=== PATIENT | male | born 1990 | race Caucasian/White ===

== ENCOUNTER 2016-10-17 12:47 | Inpatient (IN) | payer MEDICAID, OTHER ==
[~2016-10-17] VITALS: Ht 180.3 cm; Wt 109.3 kg
[~2016-10-17 12:47] MED LIST: ASPIRIN81 M4 PO; COLACE100 MG PO; LEVAQUIN500 MG PO; LOPRESSOR25 MG PO; NORCO 325 MG-51 TAB PO; NORCO 5/325 MG1 TAB PO; PANCREASE PO; PRILOSEC40 MG PO; ZOCOR20 MG PO
[2016-10-17 13:23] VITALS: BP 135/92
--- NOTE | 2016-10-17 15:46 | NUR ---
Patient ambulated to bed 3. RN evaluating patient at bedside.
--- NOTE | 2016-10-17 15:47 | NUR ---
Dr. Napier evaluating patient at bedside.
[2016-10-17] MEDS ORDERED: NACL 0.9% 1,000 ML IV SCH (15:53)
[2016-10-17] MEDS ORDERED: ONDANSETRON 4 MG/2 ML VIAL IVP ONE ×2 (15:55)
[2016-10-17] MEDS ORDERED: HYDROmorphone 1 MG/ML AMP IVP ONE ×2 (15:55→17:05)
[2016-10-17] MEDS ORDERED: NACL 0.9% 1,000 ML IV ONE (15:55)
[2016-10-17] MEDS ORDERED: FAMOTIDINE 20 MG/2 ML VIAL IVP ONE (15:55)
--- NOTE | 2016-10-17 16:00 | NUR ---
PATIENT PRESENTS TO ED WITH EPIGASTRIC PAIN RADIATING BACK WITH N/V . PT STATES I WAS DRINKING HEAVY YESTERDAY SKIN IS PINK/WARM/DRY; AAOX4 WITH EVEN AND STEADY GAIT; LUNGS CLEAR BL; HR EVEN AND REGULAR; PT DENIES ANY FEVER, CP, SOB, OR COUGH AT THIS TIME; PATIENT STATES PAIN OF 10/10 AT THIS TIME; VSS; PATIENT POSITIONED FOR COMFORT; HOB ELEVATED; BEDRAILS UP X2; BED DOWN. ER MD MADE AWARE OF PT STATUS.
[2016-10-17] MEDS ORDERED: ONDANSETRON 4 MG/2 ML VIAL IVP PRN (17:40)
[2016-10-17] MEDS ORDERED: ACETAMINOPHEN 325 MG SUPP RC PRN (17:40)
[2016-10-17] MEDS ORDERED: DOCUSATE SODIUM 100 MG GELCAP PO PRN (17:40)
[2016-10-17] MEDS ORDERED: LORazepam 1 MG TAB PO PRN (17:45)
[2016-10-17] MEDS: VITAMIN B COMPLEX W/C 1 TAB PO SCH (17:45)
[2016-10-17] MEDS: FOLIC ACID 1 MG TAB PO SCH (17:45)
--- NOTE | 2016-10-17 17:54 | NUR ---
CALLED TO GIVE REPORT TO [facility]; KELL FRANKLIN STATES WILL CALL BACK.
--- NOTE | 2016-10-17 17:56 | NUR ---
Patient appears to be resting comfortably in bed. Vital Signs within normal limits. Respirations even and unlabored. WILL CONTINUE TO MONITOR.
--- NOTE | 2016-10-17 18:27 | NUR ---
REPORT GIVEN TO KELL ALFRED.
--- NOTE | 2016-10-17 18:33 | NUR ---
Patient will be admitted to care of DR. LEIVA. Admited to TELEMETRY OBSERVATION. Will go to room 112A. Belongings list completed. Report to KELL ALFRED.
--- NOTE | 2016-10-17 19:30 | NUR ---
RECEIVED REPORT FROM DAY RN AT BEDSIDE, PATIENT LYING IN BED C/O SEVERE ABDOMINAL PAIN , PATIENT APPEARS RESTLESS AND ANXIOUS, EXPLAINED TO PATIENT I WILL CHECK MDS ORDERS AND NEED TO ASSESS HIM AND HIS VITAL SIGNS BEFORE. PATIENT SKIN IS INTACT, IV TO RIGHT AC PATENT AND INTACT, ORIENTED PATIENT TO ROOM AND CALL LIGHT, DISCUSSED PLAN OF CARE WITH PATIENT, PATIENT VERBALIZED UNDERSTANDING, CALL LIGHT WITHIN REACH. WILL CONTINUE TO MONITOR. VITAL SIGNS STABLE
[2016-10-17] MEDS: LORazepam 2 MG/ML VIAL IVP SCH (19:51)
[2016-10-17] MEDS: MORPHINE SULFATE 2 MG/ML SYR IVP PRN (19:51)
[2016-10-17] MEDS: NACL 0.9% 1,000 ML IV SCH (22:05)
[2016-10-17] MEDS: KETOROLAC 30 MG/ML VIAL IVP PRN (22:05)
[2016-10-18] VITALS: BP 146/75
--- NOTE | 2016-10-18 00:10 | NUR ---
PATIENT RESTING IN BED, VITAL SIGNS STABLE, PATIENT C/O PAIN IN ABDOMEN, 01/18 WILL MEDICATE PER MD ORDER. WILL CONTINUE TO MONITOR.
[2016-10-18] MEDS: MORPHINE SULFATE 2 MG/ML SYR IVP PRN (00:37)
[2016-10-18] MEDS: NACL 0.9% 1,000 ML IV SCH ×5 (00:43→21:28)
--- NOTE | 2016-10-18 02:00 | NUR ---
PATIENT C/O ABDOMINAL PAIN 04/20 CONSTANTLY ASKING FOR DILAUDED. MORPHINE NOT DUE YET NOR IS THE TORADOL, CALLED DR LEIVA. D NOTIFIED OF PATIENT'S COMPLAINT OF PAIN, DR STATED PATIENT IS GETTING PAIN MEDS TOO OFTEN AND THAT THE PATIENT CAN NOT HAVE DILAUDED. STATED HE WILL INCREASE THE MORPHINE TO 2MG AND THE PATIENT WILL HAVE TO WAIT UNTIL IT IS DUE AGAIN. WILL F/U WITH ORDERS. EXPLAINED TO PATIENT WHAT THE DR SAID, PATIENT COMPLAINING HIS PAIN WONT GO AWAY, PATIENT IS ANXIOUS, BUT VERBALIZED UNDERSTANDING. WILL CONTINUE TO MONITOR.
[2016-10-18] MEDS ORDERED: MORPHINE SULFATE 2 MG/ML SYR IVP PRN (02:10)
--- NOTE | 2016-10-18 03:15 | NUR ---
PATIENT STILL COMPLAINING OF PAIN, OFFERED PATIENT ATIVAN PER MD ORDER TO HELP WITH THE ANXIETY, PATIENT KEEPS STATING HE WANTS SOMETHING FOR PAIN, REMINDED PATIENT PER THE DR HE HAS TO WAIT UNTIL THE NEXT DOSE IS DUE, PATIENT SAID HE WILL TAKE THE ATIVAN. PATIENT SLEEPING WHEN RETURNED WITH MEDICINE. WILL CONTINUE TO MONITOR.
--- NOTE | 2016-10-18 03:50 | NUR ---
PT C/O PAIN, ADMINISTERED PAIN ME PER MD ORDER, WILL CONTINUE TO MONITOR
--- NOTE | 2016-10-18 05:30 | NUR ---
PATIENT C/O HE STILL HAS PAIN, ADMINISTERED TORADOL PER MD ORDER. WILL CONTINUE TO MONITOR.
[2016-10-18] MEDS: KETOROLAC 30 MG/ML VIAL IVP PRN ×3 (05:32→17:14)
[2016-10-18] MEDS: LORazepam 2 MG/ML VIAL IVP SCH ×5 (06:00→23:15)
--- NOTE | 2016-10-18 06:54 | NUR ---
PATIENT SLEEPING, NO SIGN OF DISTRESS, CALL LIGHT WITHIN REACH. WILL CONTINUE TO MONITOR.
--- NOTE | 2016-10-18 07:30 | NUR ---
ENDORSED PATIENT TO DAY RN AT BEDSIDE, PATIENT IN STABLE CONDITION
--- NOTE | 2016-10-18 07:45 | NUR ---
PT LYING IN BED SLEEPING BUT WAS EASILY ROUSABLE. NO C/O PAIN VOICED AT THIS TIME. SHIFT ASSESSMENT DONE AND CHARTED. PLAN OF CARE, MEDS, TREATMENTS AND SAFETY DISCUSSED WITH PT AND PT VERBALIZED UNDERSTANDING. WILL CONTINUE TO MONITOR PT.
[2016-10-18 08:00] VITALS: BP 140/80
--- NOTE | 2016-10-18 08:00 | NUR ---
PT WAS SEEN BY DR. LEIVA AND JEANETTE. PT NOTED TO BE SLEEPING AT THIS TIME.
[2016-10-18] MEDS: FOLIC ACID 1 MG TAB PO SCH (09:16)
[2016-10-18] MEDS: VITAMIN B COMPLEX W/C 1 TAB PO SCH (09:18)
--- NOTE | 2016-10-18 09:20 | NUR ---
PT TOOK PO MEDS WELL. PT NPO EXCEPT MEDS AT THIS TIME.
[2016-10-18] MEDS: PANTOPRAZOLE 40 MG INJ VIAL IVP SCH (09:22)
--- NOTE | 2016-10-18 10:00 | NUR ---
PT WAS SEEN BY DR. LEIVA AND LEFT NEW ORDERS. PT ASKING FOR PAIN MED AT THIS TIME BUT SAME NOT DUE AT THIS TIME. PT NOTED TO BE SLEEPING WHEN CHECKED.
--- NOTE | 2016-10-18 10:30 | NUR ---
PT STATED THAT MD TOLD HIM THAT HE CAN HAVE A 1 TIME DOSE OF PAIN MADE IV. CLARIFIED SAME WITH DR. REID. MD STATED TO GIVE SCHEDULED TORADOL A LITTLE EARLIER. PT NOTED TO BE SLEEPING WHEN CHECKED.
--- NOTE | 2016-10-18 11:15 | NUR ---
TORADOL IVP GIVEN PER MD'S INSTRUCTIONS. PT NOTED TO BE SLEEPING AFTER.
--- NOTE | 2016-10-18 14:00 | NUR ---
PT NOTED TO BE SLEEPING AT THIS TIME.
[2016-10-18 16:00] VITALS: BP 137/80
[2016-10-18] MEDS ORDERED: HYDROcodone/APAP 5/325 MG 1 TAB TAB PO PRN (16:40)
--- NOTE | 2016-10-18 16:40 | NUR ---
PT ASKING FOR PAIN MED BUT NOT DUE AT THIS TIME. PT STATED THAT HIS ABDOMINAL PAIN WAS 4/10. PT STATED THAT MD TOLD HIM THAT HE COULD HAVE NORCO PRN. TALKED TO DR. JEANETTE HUSSEIN SAME AND MD GAVE NEW ORDERS. PT NOTED TO BE SLEEPING WHEN CHECKED.
--- NOTE | 2016-10-18 17:14 | NUR ---
PT MEDICATED WITH TORADOL 30 MG IVP PER PRN ORDER FOR C/O ABDOMINAL PAIN 01/18. WILL CONTINUE TO CHECK PT.
--- NOTE | 2016-10-18 18:00 | NUR ---
PT NOTED TO BE SLEEPING WHEN CHECKED.
--- NOTE | 2016-10-18 19:22 | NUR ---
REPORT GIVEN TO LENNY CASTORENA AT BEDSIDE. PT LYING IN BED COMFORTABLY USING HIS PHONE AND VOICED NO C/O PAIN/ DISCOMFORT AT THIS TIME.
--- NOTE | 2016-10-18 19:23 | NUR ---
RECEIVED REPORT FROM DAY RN FOR CONTINUITY OF CARE. PATIENT IS A&OX4, DISCUSSED PLAN OF CARE WITH PATIENT, VERBALIZED UNDERSTANDING. SHIFT ASSESSMENT DONE, VS TAKEN, STABLE. NO S/S OF RESPIRATORY DISTRESS NOTED ON ROOM AIR. PATIENT STATES TOLERABLE ABDOMINAL PAIN AT THIS TIME. SKIN INTACT. IV TO RT AC 20 GAUGE PATENT AND INFUSING FLUIDS WELL. URINAL AT BEDSIDE. SAFETY PRECAUTIONS ENFORCED. CALL LIGHT PLACED WITHIN REACH. WILL CONTINUE TO MONITOR.
[2016-10-18 20:00] VITALS: BP 137/88
--- NOTE | 2016-10-18 22:24 | NUR ---
PT C/O PAIN TO ABDOMEN, MEDICATED WITH NORCO. ALSO PROVIDED PT WITH DRINK PER CLEAR LIQUID DIET, TOLERATED WELL. WILL CONTINUE TO MONITOR.
--- NOTE | 2016-10-18 23:15 | NUR ---
VS TAKEN, STABLE. DUE MEDICATIONS ADMINISTERED, TOLERATED WELL.
[2016-10-19] VITALS: BP 145/86
--- NOTE | 2016-10-19 00:15 | NUR ---
PT TOOK A SHOWER AND PROVIDED PM CARE. NOW IN BED RESTING. WILL CONTINUE TO MONITOR.
[2016-10-19] MEDS: NACL 0.9% 1,000 ML IV SCH ×4 (01:17→19:50)
[2016-10-19] MEDS: KETOROLAC 30 MG/ML VIAL IVP PRN ×3 (01:23→14:23)
--- NOTE | 2016-10-19 01:23 | NUR ---
PT C/O ABDOMINAL PAIN, MEDICATED PER MD ORDER. CALL LIGHT PLACED WITHIN REACH.
--- NOTE | 2016-10-19 02:00 | NUR ---
PT IS SLEEPING. NO S/S OF DISTRESS OR DISCOMFORT NOTED. WILL CONTINUE TO MONITOR.
--- NOTE | 2016-10-19 04:02 | NUR ---
PT IS AWAKE ON THE PHONE, NO S/S OF DISTRESS OR DISCOMFORT NOTED. WILL CONTINUE TO MONITOR.
[2016-10-19] MEDS ORDERED: NACL 0.9% 1,000 ML IV SCH (05:00)
[2016-10-19] MEDS: LORazepam 2 MG/ML VIAL IVP SCH ×3 (05:59→18:02)
--- NOTE | 2016-10-19 06:00 | NUR ---
DUE MEDICATION ADMINISTERED, TOLERATED WELL. VS STABLE. CALL LIGHT WITHIN REACH.
--- NOTE | 2016-10-19 07:20 | NUR ---
ENDORSED PATIENT TO DAY RN FOR CONTINUITY OF CARE, PATIENT IS IN STABLE CONDITION.
--- NOTE | 2016-10-19 07:21 | NUR ---
RECEIVED REPORT FROM THE CASSANDRA DEVELOPER NURSE AT BEDSIDE. PT IS SLEEPING. NO SIGNS OF DISTRESS. WILL BE BACK TO ASSESS PT.
[2016-10-19 08:00] VITALS: BP 135/84
--- NOTE | 2016-10-19 08:22 | NUR ---
PATIENT HAS BEEN SCREENED AND CATEGORIZED MODERATE NUTRITION RISK. PATIENT WILL BE SEEN WITHIN 3-5 DAYS OF ADMISSION. 10/20/16-10/22/[address]
[2016-10-19] MEDS: VITAMIN B COMPLEX W/C 1 TAB PO SCH (08:25)
[2016-10-19] MEDS: FOLIC ACID 1 MG TAB PO SCH (08:25)
[2016-10-19] MEDS: PANTOPRAZOLE 40 MG INJ VIAL IVP SCH (08:26)
--- NOTE | 2016-10-19 08:32 | NUR ---
ADMINISTERED MORNING MEDS. PT TOLERATED WELL. WENT OVER THE PLAN TODAY. TRY TO EAT FOOD TO SEE IF PT CAN TOLERATE IT BETTER. SEE IF THE ABDOMINAL PAIN IS BETTER. HAVE PT AMBULATE UP AND DOWN [address]. IF HE IS GOOD, HE CAN GO HOME PER MD.
--- NOTE | 2016-10-19 10:45 | NUR ---
PT SNORING, SOUND ASLEEP. NO SIGNS OF DISTRESS. CALL LIGHT WITHIN REACH. WILL CONTINUE TO MONITOR PT.
--- NOTE | 2016-10-19 11:15 | NUR ---
NOTIFIED DR. COLIN ABOUT PT'S K LEVEL AT 3.2; MAG AT 1.7; AND AMYLASE AND LIPASE AT [phone]/[phone]. DR. COLIN ORDERED HIS FLUIDS TO BE INCREASED TO 200ML/HR FROM 80ML. ORDERED DILAUDID ONCE,STAT. WILL CONTINUE TO MONITOR PT.
--- NOTE | 2016-10-19 12:16 | NUR ---
PT'S DAUGHTER IS HERE. ADMINISTERED 1200 MEDS. CRUSHED AND IN APPLE SAUCE. PT TOLERATED WELL. ORDERED ZOSYN FOR LEUKOCYTOSIS. ADMINISTERED IVPB. PT TOLERATED WELL. PT IS FEEDING THE PT. WILL CONTINUE TO CHECK ON PT.
--- NOTE | 2016-10-19 12:58 | NUR ---
PT IS SLEEPING. KEEPS BENDING HIS IV ARM AND THE IV PUMP ALARM IS GOING OFF. PT HAS NOT ASKED FOR ANY PAIN MEDS, OF YET. JUST SLEEPING. WILL CONTINUE TO MONITOR PT.
[2016-10-19] MEDS ORDERED: HYDROmorphone 1 MG/ML AMP IVP SCH (14:28)
--- NOTE | 2016-10-19 15:09 | NUR ---
PT SLEEPING. NO SIGNS OF DISTRESS. CALL LIGHT WITHIN REACH. WILL CONTINUE TO MONITOR PT.
[2016-10-19 16:00] VITALS: BP 158/87
--- NOTE | 2016-10-19 17:00 | NUR ---
PT RESTING IN BED, ON THE PHONE. NO COMPLAINTS AT THIS TIME. WILL CONTINUE TO MONITOR PT.
--- NOTE | 2016-10-19 19:25 | NUR ---
ENDORSED PT TO THE CHARTER REPRESENTATIVE NURSE AT BEDSIDE FOR CONTINUITY OF CARE. PT IS IN STABLE CONDITION.
--- NOTE | 2016-10-19 19:26 | NUR ---
RECEIVED REPORT FROM SHANTI CASTORENA FOR CONTINUITY OF CARE. PATIENT IS A&OX4, DISCUSSED PLAN OF CARE WITH PATIENT, VERBALIZED UNDERSTANDING. SHIFT ASSESSMENT DONE, VS TAKEN, STABLE AT THIS TIME. NO S/S OF RESPIRATORY DISTRESS NOTED ON ROOM AIR. PATIENT DENIES PAIN AT THIS TIME. SKIN INTACT. IV TO RT AC 20 GAUGE PATENT AND INFUSING FLUIDS WELL. NPO ENFORCED TO PATIENT AND REMOVED ALL FOOD/DRINK FROM ROOM, PT VERBALIZED UNDERSTANDING. SAFETY PRECAUTIONS ENFORCED. CALL LIGHT PLACED WITHIN REACH. WILL CONTINUE TO MONITOR.
[2016-10-19 20:00] VITALS: BP 130/78
--- NOTE | 2016-10-19 21:32 | NUR ---
EMPTIED URINAL, 300 ML LIGHT RODRIGO URINE NOTED. ALL NEEDS MET AT THIS TIME. WILL CONTINUE TO MONITOR.
--- NOTE | 2016-10-19 22:41 | NUR ---
PT C/O SEVERE ABDOMINAL PAIN. SPOKE WITH DR. BAGLEY REGARDING PAIN MEDICATION, WILL FOLLOW OUT ORDERS GIVEN.
[2016-10-19] MEDS: HYDROmorphone 1 MG/ML AMP IVP PRN (23:48)
--- NOTE | 2016-10-19 23:48 | NUR ---
VS TAKEN. PATIENT STATES SEVERE ABDOMINAL PAIN /, ADMINISTERED MEDICATION PER MD ORDER. CALL LIGHT PLACED WITHIN REACH.
[2016-10-20] VITALS: BP 158/87
[2016-10-20] MEDS: NACL 0.9% 1,000 ML IV SCH ×2 (00:14→06:58)
--- NOTE | 2016-10-20 02:03 | NUR ---
PT AMBULATING IN HALLWAY, TOLERATING WELL.
[2016-10-20] MEDS: HYDROmorphone 1 MG/ML AMP IVP PRN (04:40)
--- NOTE | 2016-10-20 04:40 | NUR ---
PT C/O PAIN, MEDICATED PER MD ORDER. VS TAKEN, STABLE. CALL LIGHT WITHIN REACH.
--- NOTE | 2016-10-20 06:22 | NUR ---
PT IS AWAKE WATCHING TV, CALL LIGHT WITHIN REACH.
[2016-10-20] MEDS: LORazepam 2 MG/ML VIAL IVP SCH ×2 (06:50)
--- NOTE | 2016-10-20 07:26 | NUR ---
ENDORSED PATIENT TO DAY RN FOR CONTINUITY OF CARE, PATIENT IS IN STABLE CONDITION.
--- NOTE | 2016-10-20 07:27 | NUR ---
RECEIVED REPORT FROM THE EYE PHYSICIAN NURSE AT BEDSIDE FOR CONTINUITY OF CARE. PT IS AWAKE AND ORIENTED. I RE-INTRODUCED MYSELF AND UPDATED THE BOARD. PT HAS NO COMPLAINTS AT THIS TIME. NOTED THE IV ON LA AC 20G NS AT 200ML STILL INFUSING. V/S WITHIN NORMAL RANGE. PT IS CLAIMING AFTER HE SEES THE , HE WILL BE LEAVING FOR WORK. I WILL AWAIT A DC ORDER.
--- NOTE | 2016-10-20 07:45 | NUR ---
PER MD, PT IS NOT READY TO LEAVE. PT CLAIMS HE WILL SIGN AN AMA IF NECESSARY.
[2016-10-20 08:00] VITALS: BP 140/81
[2016-10-20] MEDS: FOLIC ACID 1 MG TAB PO SCH (09:06)
[2016-10-20] MEDS: VITAMIN B COMPLEX W/C 1 TAB PO SCH (09:06)
[2016-10-20] MEDS: PANTOPRAZOLE 40 MG INJ VIAL IVP SCH (09:06)
--- NOTE | 2016-10-20 09:10 | NUR ---
ADMINISTERED MORNING MEDS. PT TOLERATED WELL. WILL CONTINUE TO MONITOR PT.
--- NOTE | 2016-10-20 09:35 | NUR ---
PT SIGNED AMA PAPERS. I REMOVED HIS IV, CANNULA INTACT. NO BLEEDING NOTED. I REMOVED HIS ARM BANDS. I GAVE HIM HIS PRESCRIPTIONS THAT THE WROTE FOR HIM TO TAKE WITH HIM. HE IS TO GET DRESSED AND GET HIS PERSONAL BELONGINGS TOGETHER. WILL LET ME KNOW WHEN HIS RIDE GETS HERE. WILL CONTINUE TO MONITOR PT.
--- NOTE | 2016-10-20 10:35 | NUR ---
PT REQUESTED TO LEAVE. HIS RIDE IS HERE. WHEELED PT OUT TO THE FRONT. PT IN STABLE CONDITION.
== END 2016-10-20 10:35 | disposition left against medical advice (07) | DRG 282 ==
LOC: MED 12:47 → OBSVTOIN 17:43 → UNDOADMOB 17:43 → MTU 17:43 → INTOOBSV 17:43 → OBSVTOIN 10-18 16:56 → MTU 10-18 16:56
PROVIDERS: ADMIT Student in an Organized Health Care Education/Training Program; ATTEND Student in an Organized Health Care Education/Training Program
DX: K85.90 Acute pancreatitis without necrosis or infection, unspecified (principal); N17.0 Acute kidney failure with tubular necrosis; Y90.0 Blood alcohol level of less than 20 mg/100 ml; K76.0 Fatty (change of) liver, not elsewhere classified; E66.9 Obesity, unspecified; E44.1 Mild protein-calorie malnutrition; F10.20 Alcohol dependence, uncomplicated; F17.210 Nicotine dependence, cigarettes, uncomplicated; Z53.21 Procedure and treatment not carried out due to patient leaving prior to being seen by health care provider; Z84.1 Family history of disorders of kidney and ureter; Z71.41 Alcohol abuse counseling and surveillance of alcoholic; Z68.33 Body mass index [BMI] 33.0-33.9, adult; Z79.899 Other long term (current) drug therapy; Z28.21 Immunization not carried out because of patient refusal

== ENCOUNTER 2017-03-15 18:13 | Emergency (ER) | payer MEDICAID ==
[~2017-03-15] VITALS: Ht 182.9 cm; Wt 115.7 kg
[~2017-03-15 18:13] MED LIST changes: +ACET-2869 PO; -ASPIRIN81 M4 PO; -COLACE100 MG PO; -LEVAQUIN500 MG PO; -LOPRESSOR25 MG PO; -NORCO 325 MG-51 TAB PO; -NORCO 5/325 MG1 TAB PO; -PANCREASE PO; -PRILOSEC40 MG PO; -ZOCOR20 MG PO
[2017-03-15 18:16] VITALS: BP 147/73
--- NOTE | 2017-03-15 18:21 | NUR ---
PATIENT AMBULATED TO BED 7
--- NOTE | 2017-03-15 18:22 | NUR ---
26/M BIB FAMILY C/O RT TOE PAIN AND ABDOMINAL PAIN x 3 DAYS. PT STATES HE HAS HX OF PANCREATITIS. DENIES N/V/D; SKIN IS PINK/WARM/DRY; AAOX4 WITH EVEN AND STEADY GAIT; LUNGS CLEAR BL; HR EVEN AND REGULAR; PT DENIES ANY FEVER, CP, SOB, OR COUGH AT THIS TIME; PATIENT STATES PAIN OF 7/10 AT THIS TIME; PATIENT POSITIONED FOR COMFORT; HOB ELEVATED; BEDRAILS UP X2; BED DOWN. ER MD MADE AWARE OF PT STATUS.
--- NOTE | 2017-03-15 18:22 | NUR ---
Note undone in EDM - 03/15/17 at 1843 by MED1 6/M BIB FAMILY C/O RT TOE PAIN AND ABDOMINAL PAIN x 3 DAYS. PT STATES HE HAS HX OF PANCREATITIS. DENIES N/V/D; SKIN IS PINK/WARM/DRY; AAOX4 WITH EVEN AND STEADY GAIT; LUNGS CLEAR BL; HR EVEN AND REGULAR; PT DENIES ANY FEVER, CP, SOB, OR COUGH AT THIS TIME; PATIENT STATES PAIN OF 7/10 AT THIS TIME; PATIENT POSITIONED FOR COMFORT; HOB ELEVATED; BEDRAILS UP X2; BED DOWN. ER MADE AWARE OF PT STATUS.
--- NOTE | 2017-03-15 18:26 | NUR ---
Patient being evaluated by dr canales at bedside.
--- NOTE | 2017-03-15 18:40 | NUR ---
LAB AT BEDSIDE.
[2017-03-15 18:52] LABS: BASOPHILS # (AUTO) 0.1 K/uL (0.00-0.22); BASOPHILS % (AUTO) 0.8 % (0.0-2.0); EOSINOPHILS # (AUTO) 0.2 K/uL (0-0.4); EOSINOPHILS % (AUTO) 2.2 % (0.0-4.0); HEMATOCRIT 45.9 % (36-52); HEMOGLOBIN 15.4 g/dL (12.0-18.0); LYMPHOCYTES # (AUTO) 1.8 K/uL (2.0-11.5); LYMPHOCYTES % (AUTO) 19.2 % (20.5-51.1); MEAN CORPUSCULAR HEMOGLOBIN 31 pg (27-31); MEAN CORPUSCULAR HGB CONC 34 g/dL (33-37); MEAN CORPUSCULAR VOLUME 91 fL (80-94); MONOCYTES # (AUTO) 0.2 K/uL (0.8-1.0); MONOCYTES % (AUTO) 2.3 % (1.7-9.3); NEUTROPHILS # (AUTO) 6.9 K/uL (1.8-7.7); NEUTROPHILS % (AUTO) 75.5 % (42.2-75.2); PLATELET COUNT (AUTO) 189 K/uL (140-450); RED BLOOD CELL COUNT(AUTO) 5.03 MIL/uL (4.20-6.10); RED CELL DISTRIBUTION WIDTH 12.2 % (11.6-13.7); WHITE BLOOD COUNT (AUTO) 9.2 K/uL (4.8-10.8)
--- NOTE | 2017-03-15 19:09 | NUR ---
GAVE REPORT TO KELL ADAM.
--- NOTE | 2017-03-15 19:10 | NUR ---
PT RESTING IN BED, NO S/S OF DISTRESS NOTED AT THE MOMENT.
[2017-03-15] MEDS ORDERED: LIDOCAINE 1% 500 MG/50 ML VIAL INJ SCH (19:20)
[2017-03-15] MEDS ORDERED: LIDOCAINE 1% ED 50 ML ONE (19:28)
[2017-03-15 19:37] LABS: ANION GAP 11.9 (8-16); CARBON DIOXIDE 26.6 mmol/L (21-32); POTASSIUM 3.5 mmol/L (3.5-5.1)
[2017-03-15 19:38] LABS: ALBUMIN 3.8 g/dL (3.4-5.0); CREATININE 0.9 mg/dL (0.7-1.3); TOTAL BILIRUBIN 0.5 mg/dL (0.0-1.0)
[2017-03-15 19:57] VITALS: BP 132/75
--- NOTE | 2017-03-15 19:57 | NUR ---
Patient discharged with v/s stable. Written and verbal after care instructions given and explained. Patient alert, oriented and verbalized understanding of instructions. Ambulatory with steady gait. All questions addressed prior to discharge. ID band removed. Patient advised to follow up ON WOUND with PMD IN 2-3 DAYS. Rx of NORCO given. Patient educated on indication of medication including possible reaction and side effects. Opportunity to ask questions provided and answered.
== END 2017-03-15 19:57 | disposition home or self-care (01) ==
LOC: MED 18:13
DX: L60.0 Ingrowing nail (principal); L03.011 Cellulitis of right finger; R10.13 Epigastric pain; K85.90 Acute pancreatitis without necrosis or infection, unspecified; R03.0 Elevated blood-pressure reading, without diagnosis of hypertension; K21.9 Gastro-esophageal reflux disease without esophagitis; Z79.899 Other long term (current) drug therapy
CPT/HCPCS: 11730; 36415; 80053; 82150; 83615; 83690; 85025; 99284; J2001

== ENCOUNTER 2017-05-27 09:06 | Emergency (ER) | payer MEDICAID ==
[~2017-05-27] VITALS: Ht 185.4 cm; Wt 117.9 kg
[2017-05-27 09:10] VITALS: BP 144/94
--- NOTE | 2017-05-27 09:15 | NUR ---
Patient ambulated to bed 04.
--- NOTE | 2017-05-27 09:28 | NUR ---
PT PRESENTS TO ER W/C/O DIZZINESS SINCE LAST NOC. PT STATES HE'S BEEN FEELING INCREASINGLY ANXIOUS. HX PANCREATITIS. DENIES N/V/D; SKIN IS PINK/WARM/DRY; AAOX4 WITH EVEN AND STEADY GAIT; LUNGS CLEAR BL; HR EVEN AND REGULAR; PT DENIES ANY FEVER, CP, SOB, OR COUGH AT THIS TIME; PATIENT STATES PAIN OF 0/10 AT THIS TIME; VSS; PATIENT POSITIONED FOR COMFORT; HOB ELEVATED; BEDRAILS UP X2; BED DOWN. ER MD MADE AWARE OF PT STATUS.
--- NOTE | 2017-05-27 09:46 | NUR ---
AAO PT BEING EVALUATED BY DR LOGAN AT BEDSIDE
--- NOTE | 2017-05-27 10:00 | NUR ---
Patient discharged with v/s stable. Written and verbal after care instructions given and explained. Patient verbalized understanding. Ambulatory with steady gait. All questions addressed prior to discharge. Advised to follow up with PMD.
[2017-05-27 10:01] VITALS: BP 132/80
== END 2017-05-27 10:00 | disposition home or self-care (01) ==
LOC: MED 09:06
DX: F41.9 Anxiety disorder, unspecified (principal); K21.9 Gastro-esophageal reflux disease without esophagitis; Z79.899 Other long term (current) drug therapy
CPT/HCPCS: 82948; 99284

== ENCOUNTER 2017-07-06 13:28 | Inpatient (IN) | payer MEDICAID ==
[~2017-07-06] VITALS: Ht 185.4 cm; Wt 119.3 kg
[2017-07-06 13:42] VITALS: BP 146/84
--- NOTE | 2017-07-06 15:14 | NUR ---
Patient ambulated to bed 10. RN evaluating patient at bedside.
[2017-07-06] MEDS ORDERED: ONDANSETRON 4 MG/2 ML VIAL IVP ONE (15:25)
[2017-07-06] MEDS ORDERED: NACL 0.9% 1,000 ML IV ONE ×2 (15:25→16:30)
[2017-07-06] MEDS ORDERED: MORPHINE SULFATE 4 MG/ML SYR IVP ONE ×2 (15:25→16:15)
[2017-07-06 16:00] LABS: BASOPHILS # (AUTO) 0.1 K/uL (0.00-0.22); BASOPHILS % (AUTO) 0.6 % (0.0-2.0); EOSINOPHILS # (AUTO) 0.1 K/uL (0-0.4); EOSINOPHILS % (AUTO) 1.2 % (0.0-4.0); HEMATOCRIT 47.5 % (36-52); HEMOGLOBIN 16.1 g/dL (12.0-18.0); LYMPHOCYTES # (AUTO) 1.3 K/uL (2.0-11.5); LYMPHOCYTES % (AUTO) 15.8 % (20.5-51.1); MEAN CORPUSCULAR HEMOGLOBIN 30 pg (27-31); MEAN CORPUSCULAR HGB CONC 34 g/dL (33-37); MEAN CORPUSCULAR VOLUME 89 fL (80-94); MONOCYTES # (AUTO) 0.3 K/uL (0.8-1.0); MONOCYTES % (AUTO) 3.6 % (1.7-9.3); NEUTROPHILS # (AUTO) 6.6 K/uL (1.8-7.7); NEUTROPHILS % (AUTO) 78.8 % (42.2-75.2); PLATELET COUNT (AUTO) 188 K/uL (140-450); RED BLOOD CELL COUNT(AUTO) 5.31 MIL/uL (4.20-6.10); WHITE BLOOD COUNT (AUTO) 8.4 K/uL (4.8-10.8)
--- NOTE | 2017-07-06 16:00 | NUR ---
26M bib self with c/o 04/20 "sharp burning" non radiating epigastric pain with n/v/d x 2 days; pt denies any fevers, cp, or urinary complaints; pt is aox4, rr are even and unlabored. pt positioned to comfort, bed down. nad. will continue to monitor.
[2017-07-06 16:19] LABS: ANION GAP 11.3 (8-16); CARBON DIOXIDE 27.7 mmol/L (21-32)
[2017-07-06 16:25] LABS: ALBUMIN 3.8 g/dL (3.4-5.0); TOTAL BILIRUBIN 0.6 mg/dL (0.0-1.0)
[2017-07-06] MEDS ORDERED: ACETAMINOPHEN 325 MG TAB PO PRN (16:50)
[2017-07-06] MEDS ORDERED: ONDANSETRON 4 MG/2 ML VIAL IM/IVP PRN (16:50)
[2017-07-06] MEDS ORDERED: DOCUSATE SODIUM 100 MG GELCAP PO PRN (16:50)
[2017-07-06 17:50] LABS: PROTHROMBIN TIME 9.9 secs (10.8-13.4)
[2017-07-06 18:00] LABS: FREE T4 (FREE THYROXINE) 0.82 ng/dL (0.76-1.46); MAGNESIUM 1.8 mg/dL (1.8-2.4); PHOSPHORUS 3.1 mg/dL (2.5-4.9); THYROID STIMULATING HORMONE 1.34 uIU/mL (0.34-3.74)
[2017-07-06] MEDS: HYDROmorphone PFS 2 MG/ML SYR IVP PRN (18:00)
--- NOTE | 2017-07-06 18:00 | NUR ---
pt laying in gurney with eyes closed. pt with no complaints. vss. nad. will continue to monitor.
--- NOTE | 2017-07-06 19:11 | NUR ---
Pt report given to Rogelio silveira. Transfer of care at this time.
--- NOTE | 2017-07-06 19:15 | NUR ---
REPORT RECEIVED FROM KELL RAGSDALE
--- NOTE | 2017-07-06 19:38 | NUR ---
Patient will be admitted to care of DR SYLVESTER. Admited to TELE. Will go to [id number]. Belongings list completed. Report to KELL ROBERT.
[2017-07-06 19:40] VITALS: BP 145/93
--- NOTE | 2017-07-06 19:40 | NUR ---
ADMITTED THIS 26 YEAR OLD MALE FROM ER [facility] WITH DX OF ACUTE PANCREATITIS, AMBULATED OT BED WITH STEADY GAIT, ASSESSMENT DONE, VITAL SIGNS TABLE, PAIN 7/10 AT THIS TIME, WILL MEDICATE WHEN DUE, INSTRUCTED NPO STATUS, VERBALIZED UNDERSTANDING, ORIENTED TO ROOM AND CALL LIGHT, PLAN OF CARE DISCUSS, CALL LIGHT WITHIN REACH.
[2017-07-06] MEDS: LORazepam 2 MG/ML VIAL IVP SCH (20:09)
[2017-07-06] MEDS: NACL 0.9% 1,000 ML IV SCH (20:10)
[2017-07-06] MEDS: KETOROLAC 15 MG/ML VIAL IVP PRN (22:48)
--- NOTE | 2017-07-06 22:50 | NUR ---
PT IN PAIN, DILAUDID NOT DUE YET, TORADOL IVP GIVEN PRN, WILL MONITOR EFFECTIVENESS, MONITORED CLOSELY.
[2017-07-06 23:17] LABS: APPEARANCE,URINE CLEAR (CLEAR); BILIRUBIN,URINE NEGATIVE (NEGATIVE); BLOOD, URINE NEGATIVE (NEGATIVE); COLOR,URINE YELLOW (YELLOW); LEUKOCYTE ESTERASE ,URINE NEGATIVE (NEGATIVE); NITRITE, URINE NEGATIVE (NEGATIVE); UGLUCOSE NEGATIVE (NEGATIVE)
[2017-07-07] VITALS: BP 131/83
--- NOTE | 2017-07-07 | NUR ---
PT SLEEPING, EASILY AROUSABLE, VITAL SIGNS STABLE, IVF INFUSING WELL, MONITORED CLOSELY.
[2017-07-07] MEDS: HYDROmorphone PFS 2 MG/ML SYR IVP PRN ×4 (01:00→21:27)
--- NOTE | 2017-07-07 01:00 | NUR ---
PT AWAKE, COMPLAINING OF PAIN, MEDICATED PRN WITH DILAUDID IVP, MONITORED CLOSELY.
[2017-07-07 04:00] VITALS: BP 135/81
[2017-07-07] MEDS: LORazepam 2 MG/ML VIAL IVP SCH ×3 (04:48→20:39)
[2017-07-07] MEDS: KETOROLAC 15 MG/ML VIAL IVP PRN (04:48)
--- NOTE | 2017-07-07 04:50 | NUR ---
PT AWAKE COMPLAINING OF PAIN, TORADOL IVP GIVEN PRN, DUE ATIVAN ADMINISTERED, MAINTAINED ON NPO, IVF INFUSING WELL, MONITORED CLOSELY.
[2017-07-07 06:15] LABS: T4 (THYROXINE) 6.2 ug/dL (4.5-12.0)
[2017-07-07] MEDS: NACL 0.9% 1,000 ML IV SCH ×3 (06:51→17:53)
[2017-07-07 06:55] LABS: MEAN CORPUSCULAR HEMOGLOBIN 31 pg (27-31); MEAN CORPUSCULAR HGB CONC 35 g/dL (33-37); MEAN CORPUSCULAR VOLUME 89 fL (80-94); PLATELET COUNT (AUTO) 157 K/uL (140-450); RED BLOOD CELL COUNT(AUTO) 4.86 MIL/uL (4.20-6.10); RED CELL DISTRIBUTION WIDTH 12.3 % (11.6-13.7)
--- NOTE | 2017-07-07 07:25 | NUR ---
PT SLEEPING, NO SIGNS OF DISTRESS, REPORT GIVEN TO KELL AVILA FOR CONTINUITY OF CARE.
--- NOTE | 2017-07-07 07:26 | NUR ---
RECEIVED REPORT FROM DIRECTOR CREDIT RISK NURSE JAKOB AT BEDSIDE FOR CONTINUITY OF CARE. PT IS AWAKE AND ORIENTED. INTRODUCED SELF AND UPDATED BOARD. PT IN STABLE CONDITION.
[2017-07-07 07:30] LABS: ANION GAP 11.6 (8-16); CARBON DIOXIDE 26.8 mmol/L (21-32); CREATININE 0.8 mg/dL (0.7-1.3); POTASSIUM 3.4 mmol/L (3.5-5.1)
[2017-07-07 07:31] LABS: AMYLASE 647 U/L (25-115); LIPASE 4983 U/L (73-393)
[2017-07-07 08:00] VITALS: BP 131/72
[2017-07-07 08:05] LABS: LYMPHOCYTES % (MANUAL) 16 % (20-46); MONOCYTES % (MANUAL) 2 % (5-12)
--- NOTE | 2017-07-07 08:46 | NUR ---
PATIENT HAS BEEN SCREENED AND CATEGORIZED MODERATE NUTRITION RISK. PATIENT WILL BE SEEN WITHIN 3-5 DAYS OF ADMISSION. 07/08/17-07/10/[address]
--- NOTE | 2017-07-07 09:41 | NUR ---
CM NOTE INITIAL REVIEW FAXED TO [facility] [phone] PH# [phone] AND TO [facility] [phone] YISEL PH# [phone]
[2017-07-07 12:00] VITALS: BP 148/89
--- NOTE | 2017-07-07 15:51 | NUR ---
PT COMPLAINED OF ABD PAIN 02/18. ADMINISTERED DILAUDID 0.5MG IVP. EXPLAINED TO PT CHANGE IN DOSE PER MD ORDER AND SIDE EFFECTS. PT VERBALIZED UNDERSTANDING. NO COMPLAINTS AT THIS TIME, PT IS RESTING IN BED NOW ON CELL PHONE. WILL CONTINUE TO MONITOR.
[2017-07-07 16:00] VITALS: BP 144/84
--- NOTE | 2017-07-07 19:19 | NUR ---
ENDORSED PT TO ORACLE TECHNICAL DEVELOPER NURSE PASCALE AT BEDSIDE FOR CONTINUITY OF CARE. PT IN STABLE CONDITION.
--- NOTE | 2017-07-07 19:20 | NUR ---
RECEIVED PT FROM AUSTIN CASTORENA PT IS AAOX4 AMBULATORY ON TELEMETRY SR IV ON LEFT AC INFUSIG WELL, VOIDING WELL , RESTING ON BED DENIES PAIN AT THIS STIME INITIAL ASSESSMENT DONE
[2017-07-07 20:00] VITALS: BP 149/78
--- NOTE | 2017-07-07 22:00 | NUR ---
AFTER PAIN MEDICATION GIVEN LPT SLEEP QUIET WELL ON TELEMETRY SR
[2017-07-08] VITALS: BP 144/86
--- NOTE | 2017-07-08 | NUR ---
PT AMBULATES TO THE RESTROOM VOIDING WELL ON TELE ST
[2017-07-08] MEDS: NACL 0.9% 1,000 ML IV SCH ×4 (01:27→20:15)
[2017-07-08] MEDS: KETOROLAC 15 MG/ML VIAL IVP PRN (01:29)
--- NOTE | 2017-07-08 02:40 | NUR ---
PT SLEEPING WELL AFTER PAIN MEDIC GIVEN
[2017-07-08 04:00] VITALS: BP 136/79
[2017-07-08] MEDS: LORazepam 2 MG/ML VIAL IVP SCH ×3 (04:49→20:09)
--- NOTE | 2017-07-08 04:57 | NUR ---
SPONGE BATH GIVEN, LINEN CHANGED REPOSITIONED VOIDING WELL YELLOW URINE ON TELEMETRY SR
--- NOTE | 2017-07-08 05:52 | NUR ---
PT SLEEPING NOT DISTRESS ON TELE SR
--- NOTE | 2017-07-08 06:08 | NUR ---
PT DENIES ANY PAIN OR DISCOMFORT IV ON LEFT AC INFUSING WELL
--- NOTE | 2017-07-08 07:10 | NUR ---
RECEIVED REPORT FROM SHUTTLE PREPARATION SUPERVISOR NURSE PASCALE AT BEDSIDE. PT IN STABLE CONDITION.
[2017-07-08 07:36] LABS: BASOPHILS # (AUTO) 0.1 K/uL (0.00-0.22); BASOPHILS % (AUTO) 1.7 % (0.0-2.0); EOSINOPHILS # (AUTO) 0.1 K/uL (0-0.4); HEMATOCRIT 41.8 % (36-52); HEMOGLOBIN 14.6 g/dL (12.0-18.0); LYMPHOCYTES # (AUTO) 0.9 K/uL (2.0-11.5); LYMPHOCYTES % (AUTO) 13.7 % (20.5-51.1); MEAN CORPUSCULAR HEMOGLOBIN 31 pg (27-31); MEAN CORPUSCULAR HGB CONC 35 g/dL (33-37); MEAN CORPUSCULAR VOLUME 89 fL (80-94); MONOCYTES # (AUTO) 0.4 K/uL (0.8-1.0); MONOCYTES % (AUTO) 6.3 % (1.7-9.3); NEUTROPHILS # (AUTO) 5.2 K/uL (1.8-7.7); NEUTROPHILS % (AUTO) 77.3 % (42.2-75.2); PLATELET COUNT (AUTO) 136 K/uL (140-450); RED BLOOD CELL COUNT(AUTO) 4.73 MIL/uL (4.20-6.10); RED CELL DISTRIBUTION WIDTH 12.2 % (11.6-13.7); WHITE BLOOD COUNT (AUTO) 6.7 K/uL (4.8-10.8)
[2017-07-08 07:47] LABS: ANION GAP 12.2 (8-16); CARBON DIOXIDE 25.3 mmol/L (21-32); CREATININE 0.8 mg/dL (0.7-1.3); POTASSIUM 3.5 mmol/L (3.5-5.1)
[2017-07-08 08:00] VITALS: BP 133/82
[2017-07-08] MEDS: HYDROmorphone PFS 2 MG/ML SYR IVP PRN ×2 (10:02→17:38)
[2017-07-08] MEDS ORDERED: HYDROcodone/APAP 5/325 MG 1 TAB TAB PO PRN (10:55)
--- NOTE | 2017-07-08 13:09 | NUR ---
NON-ADMINISTERED ATIVAN. PT REFUSED MED. STATED HE DID NOT WANT TO FEEL TOO SLEEPY OR SIDE EFFECTS. TOOK PHONE OUT AND LOOKED UP ATIVAN. INFORMED PT OF BENEFITS OF MED AND POTENTIAL SIDE EFFECTS. PT STILL REFUSED MED. WASTED ATIVAN IN PHARMACEUTICAL BIN. PT REPORTED HE WAS ABLE TO TOLERATE JUICE AND WATER SINCE STARTED ON CLEAR LIQUID DIET. NO SIGNS OF DISTRESS. WILL CONTINUE TO MONITOR.
--- NOTE | 2017-07-08 13:48 | NUR ---
Clinical review faxed to [facility] at [phone]
--- NOTE | 2017-07-08 15:48 | NUR ---
PT COMPLAINED OF PAIN OF IV AT LEFT AC 20G. D/C'D IV TO LEFT A/C. IV CATHETER TIP INTACT. STARTED NANNETTE NEW IV TO LEFT HAND 22G. PT TOLERATED WELL.
[2017-07-08 16:00] VITALS: BP 150/89
--- NOTE | 2017-07-08 19:30 | NUR ---
ENDORSED PT TO INTERACTIVE WEB DEVELOPER NURSE KYLIE AT BEDSIDE FOR CONTINUITY OF CARE. PT IN STABLE CONDITION.
--- NOTE | 2017-07-08 19:31 | NUR ---
PATIENT IS CURRENTLY AWAKE ALERT ORIENTED RESTING IN BED,IVF INFUSING WELL ,IV SITE PATENT,PATIENT VOIDING WELL YELLOW COLOR URINE NOTED IN URINAL.CALL LIGHT WITHIN REACH WILL CONTINUE TO MONITOR.
[2017-07-08 20:00] VITALS: BP 149/69
--- NOTE | 2017-07-08 20:09 | NUR ---
I TOLD THE PATIENT IF HE WANTS TO HAVE HIS ATIVAN PATIENT REFUSED PATIENT STATES,"I DON'T WANT TO TAKE THE ATIVAN I WANT TO EASE DOWN ON THE DRUGS." PATIENT REFUSED ATIVAN.
--- NOTE | 2017-07-08 21:30 | NUR ---
PATIENT RESTING IN BED TOLERATES CLEAR LIQUID DIET. PATIENT DOING WELL DOESN'T WANT PAIN MEDICATION AT THIS TIME BUT SAID HE WILL CALL ME IF HE NEEDS ANY.CALL LIGHT WITHIN REACH.
--- NOTE | 2017-07-08 21:38 | NUR ---
Patient's Plan of Care was discussed and reviewed with COMMERCIAL LINES UNDERWRITER: KYLIE HERRERA
--- NOTE | 2017-07-08 23:04 | NUR ---
PATIENT SLEEPING AT THIS TIME.WILL CONTINUE TO MONITOR.
[2017-07-09 00:30] VITALS: BP 148/73
--- NOTE | 2017-07-09 02:39 | NUR ---
PATIENT RESTING IN BED COMFORTABLY NEEDS MET WILL CONTINUE TO MONITOR.
[2017-07-09] MEDS: NACL 0.9% 1,000 ML IV SCH ×2 (03:24→09:53)
--- NOTE | 2017-07-09 03:26 | NUR ---
PATIENT AWAKE RESTING IN BED SAYS HE FEELS ANXIOUS AND WALKED AROUND THE NURSES STATION EARLIER AND THEN WENT BACK TO BED.
--- NOTE | 2017-07-09 04:33 | NUR ---
PATIENT IS CURRENTLY RESTING IN BED NO PAIN OR DISCOMFORT NOTED.IVF INFUSING WELL IV SITE PATENT WILL CONTINUE TO MONITOR.
--- NOTE | 2017-07-09 06:32 | NUR ---
PATIENT STABLE SLEEPING IN BED IVF INFUSING WELL IV SITE PATENT NO INFILTRATION NOTED.NO PAIN OR DISCOMFORT NOTED AT THIS TIME WILL CONTINUE TO MONITOR.
--- NOTE | 2017-07-09 07:10 | NUR ---
REPORT ENDORSED TO KELL SOSA AT BEDSIDE PATIENT STABLE SLEEPING.
--- NOTE | 2017-07-09 07:20 | NUR ---
RECEIVED BEDSIDE REPORT FROM SELLING UNDERWRITER RN. PT IS AWAKE, ALERT, ORIENTED X4. PT DENIES PAIN AT THIS TIME. IV NOTED TO THE LEFT FA.INTACT, INFUSING WELL. PLAN OF CARE DISCUSSED, PT VERBALIZED UNDERSTANDING. CALL LIGHT WITHIN REACH. WILL CONTINUE TO MONITOR.
[2017-07-09 08:00] VITALS: BP 129/89
--- NOTE | 2017-07-09 08:30 | NUR ---
ASSESSMENT DONE. VITALS WITHIN NORMAL LIMIT. WILL CONTINUE TO MONITOR.
--- NOTE | 2017-07-09 09:19 | NUR ---
CM NOTE CONCURRENT REVIEW FAXED TO [facility] [phone] PH# [phone] AND TO [facility] [phone] YISEL PH# [phone]
[2017-07-09] MEDS ORDERED: ACET-1182 PO (10:20)
[2017-07-09] MEDS ORDERED: ACET-2869 PO (10:21)
--- NOTE | 2017-07-09 11:00 | NUR ---
PT DISCHARGED PER MD ORDER. MEDICATION TEACHING AND DISCHARGE INSTRUCTIONS GIVEN. MADE PT AWARE OF HIS DOCTOR APPOINTMENT. PT VERBALIZED UNDERSTANDING. PT REPORTED PAIN 1/ AT THIS TIME. IV DC'ED, TIP INTACT. PRESSURE APPLIED. PRESCRIPTIONS GIVEN TO THE PT. PT LEFT IN STABLE CONDITION AND WITH ALL HIS BELONGING.
== END 2017-07-09 11:00 | disposition home or self-care (01) | DRG 282 ==
LOC: MED 13:28 → MTU 16:50
PROVIDERS: ADMIT Family Medicine Sports Medicine; ATTEND Family Medicine Sports Medicine
DX: K85.90 Acute pancreatitis without necrosis or infection, unspecified (principal); E78.1 Pure hyperglyceridemia; E78.5 Hyperlipidemia, unspecified; F10.20 Alcohol dependence, uncomplicated; K21.9 Gastro-esophageal reflux disease without esophagitis; Y90.9 Presence of alcohol in blood, level not specified; E66.9 Obesity, unspecified; Z68.34 Body mass index [BMI] 34.0-34.9, adult; Z84.1 Family history of disorders of kidney and ureter
CPT/HCPCS: 36415; 80048; 80053; 81003; 82150; 83036; 83690; 83735; 84100; 84436; 84439; 84443; 84479; 85025; 85610; 85730; 87081; 96361; 96374; 96375; 96376; 99285; G0482; J1170; J1885; J2060; J2270; J2405; J7030

== ENCOUNTER 2017-07-28 13:40 | Emergency (ER) | payer MEDICAID ==
[~2017-07-28] VITALS: Ht 185.4 cm; Wt 115.2 kg
[~2017-07-28 13:40] MED LIST changes: +ACET-1182 PO
[2017-07-28 13:45] VITALS: BP 145/88
--- NOTE | 2017-07-28 13:49 | NUR ---
LACERATION WRAPPED WITH DRY GAUZE AND KERLIX. CMS INTACT; NO ACTIVE BLEEDING NOTED. PT SENT BACK INTO LOBBY TO WAIT FOR X-RAY/BED.
--- NOTE | 2017-07-28 14:45 | NUR ---
PATIENT PRESENTS TO ED WITH C/O KNOCKED ON WINDOW AND CUT HIS RIGHT 5TH DIGIT; NO NUMBNESS, TINGLING HX PANCREATITIS; DENIES N/V/D; SKIN IS PINK/WARM/DRY; AAOX4 WITH EVEN AND STEADY GAIT; LUNGS CLEAR BL; HR EVEN AND REGULAR; PT DENIES ANY FEVER, CP, SOB, OR COUGH AT THIS TIME; PATIENT STATES PAIN OF 4/10 AT THIS TIME; VSS; PATIENT POSITIONED FOR COMFORT; ER MD MADE AWARE OF PT STATUS
--- NOTE | 2017-07-28 14:45 | NUR ---
PT PLACED IN OF
[2017-07-28] MEDS ORDERED: LIDOCAINE MPF 1% 50 MG/5 ML VIAL ONE (14:49)
[2017-07-28] MEDS ORDERED: LIDOCAINE 1% 500 MG/50 ML VIAL INJ SCH (14:50)
[2017-07-28] MEDS ORDERED: NEOMYCIN/POLYMYXIN/BACITRACIN 0.9 GM/1 PKT TP ONE ×2 (14:57→15:19)
[2017-07-28 15:28] VITALS: BP 133/78
== END 2017-07-28 15:28 | disposition home or self-care (01) ==
LOC: MED 13:40
DX: S61.216A Laceration without foreign body of right little finger without damage to nail, initial encounter (principal); K21.9 Gastro-esophageal reflux disease without esophagitis; W45.8XXA Other foreign body or object entering through skin, initial encounter; Y93.89 Activity, other specified; Y92.89 Other specified places as the place of occurrence of the external cause; Y99.8 Other external cause status
CPT/HCPCS: 12001; 73130; 90471; 90715; 99284; J2001

== ENCOUNTER 2021-03-25 18:07 | Inpatient (IN) | payer MEDICAID, SELFPAY ==
[~2021-03-25] VITALS: Ht 185.4 cm; Wt 122.0 kg
[~2021-03-25 18:07] MED LIST changes: -ACET-2869 PO; +HYDR-5122 PO
[2021-03-25 18:40] VITALS: BP 161/101
--- NOTE | 2021-03-25 19:16 | NUR ---
PT RETURNED TO LOBBY AT THIS TIME.
[2021-03-25 20:18] LABS: BASOPHILS % (AUTO) 0.3 % (0.0-2.0); EOSINOPHILS # (AUTO) 0.1 K/uL (0-0.4); EOSINOPHILS % (AUTO) 0.5 % (0.0-4.0); HEMATOCRIT 47.3 % (36-52); HEMOGLOBIN 16.5 g/dL (12.0-18.0); LYMPHOCYTES # (AUTO) 1.5 K/uL (2.0-11.5); LYMPHOCYTES % (AUTO) 10.8 % (20.5-51.1); MEAN CORPUSCULAR HEMOGLOBIN 32 pg (27-31); MEAN CORPUSCULAR HGB CONC 35 g/dL (33-37); MEAN CORPUSCULAR VOLUME 91.2 fL (80-94); MONOCYTES # (AUTO) 0.5 K/uL (0.8-1.0); MONOCYTES % (AUTO) 3.6 % (1.7-9.3); NEUTROPHILS # (AUTO) 11.6 K/uL (1.8-7.7); NEUTROPHILS % (AUTO) 84.8 % (42.2-75.2); PLATELET COUNT (AUTO) 203 K/uL (140-450); RED BLOOD CELL COUNT(AUTO) 5.19 MIL/uL (4.20-6.10); RED CELL DISTRIBUTION WIDTH 13.2 % (11.6-13.7); WHITE BLOOD COUNT (AUTO) 13.7 K/uL (4.8-10.8)
[2021-03-25 20:31] LABS: ALBUMIN 4.2 g/dL (3.4-5.0); ANION GAP 15.5 (8-16); CARBON DIOXIDE 27.7 mmol/L (21-32); CREATININE 0.9 mg/dL (0.6-1.3); POTASSIUM 4.2 mmol/L (3.5-5.1); TOTAL BILIRUBIN 0.6 mg/dL (0.0-1.0)
[2021-03-25] MEDS ORDERED: NACL 0.9% 1,000 ML IV ONE (20:55)
[2021-03-25] MEDS ORDERED: MORPHINE SULFATE 10 MG/ML VIAL IVP ONE (20:55)
--- NOTE | 2021-03-25 20:59 | NUR ---
PT MOVED TO BED #4
--- NOTE | 2021-03-25 21:48 | NUR ---
ADELE OF NARES COLLECTED AND TAKEN TO LAB.
--- NOTE | 2021-03-25 22:05 | NUR ---
30 YO/M BIB SELF W CO EPIGASTRIC PAIN 7/10 SHARP/PRESSURE BEGGINING AT 0700 TODAY AND HAS BEEN WORSENING. PATIENT REPORTS X1 EPISODE OF VOMIT W/O BLOOD EARLIER TODAY. DENIES ANY N/V AT THIS TIME. DENIES ANY FEVER. PATIENT REPORTS LAST FOOD OR DRINK X7 HOURS AGO. PATIENT REPORTS LAST ALCOHOL USE X4 DAYS AGO. PATIENT REPORTS TAKING NORCO 325MG X1 TAB AT 1400 TODAY W/O RELIEF OF PAIN. PATIENT LAYING IN BED LOCKED IN LOWEST POSITION W X1 SIDERAIL UP. CONNECTED TO MONITOR W VSS. NAD NOTED, WILL CONTINUE TO MONITOR. PMH:PANCREATITIS IN 2013 [facility]
--- NOTE | 2021-03-25 22:20 | NUR ---
PATIENT W C/O 10/10 ABDOMINAL PAIN . ERMD AWARE, PER ERMD WILL GO SEE PATIENT.
[2021-03-25] MEDS ORDERED: ONDANSETRON 4 MG/2 ML VIAL IVP PRN (22:25)
[2021-03-25] MEDS ORDERED: cefTRIAXone 1,000 MG VIAL ONE (22:54)
[2021-03-25] MEDS: DEXT 5% / NACL 0.45% 1,000 ML IV SCH (23:11)
[2021-03-25] MEDS ORDERED: HYDROmorphone 1 MG/ML AMP IVP STA (23:18)
--- NOTE | 2021-03-25 23:44 | NUR ---
PATIENT TO CT VIA GURNEY.
--- NOTE | 2021-03-25 23:56 | NUR ---
PT RETURN FROM CT
--- NOTE | 2021-03-26 00:25 | NUR ---
PATIENT LAYING IN BED LOCKED IN LOWEST POSITION W X1 SIDERAIL UP FOR PATIENT SAFETY. PATIENT APPEARS TO BE RESTING SUPINE W EYES CLOSED. BREATHING EVEN AND UNLABORED. CONNECTED TO MONITOR W VSS. NAD NOTED, WILL CONTINUE TO MONITOR. 0.9% NS AND .45% NS RUNNING AT 100ML/HR W 910ML VTBI.
--- NOTE | 2021-03-26 02:00 | NUR ---
PATIENT LAYING IN BED LOCKED IN LOWEST POSITION W X1 SIDERAIL UP FOR PATIENT SAFETY. PATIENT APPEARS TO BE RESTING SUPINE W EYES CLOSED. BREATHING EVEN AND UNLABORED. CONNECTED TO MONITOR W VSS. NAD NOTED, WILL CONTINUE TO MONITOR. 0.9% NS AND .45% NS RUNNING AT 100ML/HR W 740ML VTBI.
--- NOTE | 2021-03-26 02:15 | NUR ---
PATIENT AWAKE W C/O 8/10 ABDOMINAL PAIN. EDUCATED PATIENT ON BREATHING AND POSITIONING COMFORT MEASURES FOR PAIN MANAGEMENT.
[2021-03-26] MEDS: MORPHINE SULFATE 2 MG/ML SYR IVP PRN ×3 (02:30→16:35)
--- NOTE | 2021-03-26 03:37 | NUR ---
REPORT GIVEN TO KELL TORRES FOR TRANSFER OF PATIENT CARE. AT THIS TIME.
--- NOTE | 2021-03-26 03:45 | NUR ---
Patient will be admitted to care of . Admited to [facility]. Will go to room 106 B. Belongings list completed. Report to KELL MAO.
[2021-03-26 04:00] VITALS: BP 123/79
--- NOTE | 2021-03-26 04:00 | NUR ---
RECEIVED PATIENT FROM ER VIA GURNEY ALERT AND ORIENTED, COHERENT ABLE TO SPEAK NEEDS IN IRISH, NO DISTRESS, C/O SHARP ABD PAIN, MORPHINE 1 MG IVP PRN NOT DUE YET. RN PAGED DR. RAMOS, ASKING FOR BREAKTHROUGH PAIN SHOT FOR THE PATIENT'S AGONIZING PAIN
--- NOTE | 2021-03-26 05:00 | NUR ---
IV HYDRATION D5 HALF NS AT 100 ML/HOUR WAS RESUMED FROM ER. ADMISSION IN PROGRESS.
--- NOTE | 2021-03-26 06:30 | NUR ---
GOT A CALL BACK NEW ORDER OF DIALUDID 2 MG IVP Q 6 HOUR PRN WAS CARRIED OUT. 1 DOSE GIVENVIA IV PUSH, PAIN WAS RESOLVED AFTER 30 MINUTES.
[2021-03-26] MEDS: HYDROmorphone PFS 2 MG/ML SYR IVP PRN ×3 (07:00→19:20)
[2021-03-26] MEDS ORDERED: MAG SULF 2000 MG/WATER PREMIX 50 ML IV PRN (07:35)
[2021-03-26] MEDS ORDERED: SODIUM PHOS / POTASSIUM PHOS 1 PKT PDR PO PRN (07:35)
[2021-03-26] MEDS ORDERED: LORazepam 2 MG/ML VIAL IM/IVP PRN (07:35)
[2021-03-26] MEDS ORDERED: HYDROcodone/APAP 5/325 MG 1 TAB TAB PO PRN (07:35)
[2021-03-26] MEDS ORDERED: DOCUSATE SODIUM 100 MG GELCAP PO PRN (07:35)
[2021-03-26] MEDS ORDERED: ZOLPIDEM 5 MG TAB PO PRN (07:35)
[2021-03-26] MEDS ORDERED: ONDANSETRON 4 MG/2 ML VIAL IVP PRN (07:35)
[2021-03-26] MEDS ORDERED: POTASSIUM CHLORIDE 10 MEQ TABER PO PRN (07:35)
[2021-03-26] MEDS ORDERED: ACETAMINOPHEN 325 MG TAB PO PRN (07:35)
--- NOTE | 2021-03-26 07:35 | NUR ---
RECEIVED PT REPORT FROM PYROMETALLURGICAL ENGINEER. PT RESTING IN BED, ALERT AND ORIENTED. NO S/S OF DISTRESS. CALL LIGHT WITHIN REACH. ALL SAFETY MEASURES IN PLACE.
[2021-03-26 08:00] VITALS: BP 156/78
[2021-03-26 08:17] LABS: BASOPHILS % (AUTO) 0.1 % (0.0-2.0); EOSINOPHILS % (AUTO) 0.3 % (0.0-4.0); HEMATOCRIT 46.5 % (36-52); HEMOGLOBIN 15.9 g/dL (12.0-18.0); LYMPHOCYTES # (AUTO) 1.3 K/uL (2.0-11.5); MEAN CORPUSCULAR HEMOGLOBIN 32 pg (27-31); MEAN CORPUSCULAR HGB CONC 34 g/dL (33-37); MEAN CORPUSCULAR VOLUME 92.3 fL (80-94); MONOCYTES # (AUTO) 0.5 K/uL (0.8-1.0); MONOCYTES % (AUTO) 4.6 % (1.7-9.3); PLATELET COUNT (AUTO) 207 K/uL (140-450); RED BLOOD CELL COUNT(AUTO) 5.03 MIL/uL (4.20-6.10); RED CELL DISTRIBUTION WIDTH 13.3 % (11.6-13.7)
--- NOTE | 2021-03-26 08:21 | NUR ---
ALL REPORTS WERE GIVEN, TRANSFER OF CARE ENDORSED.
[2021-03-26] MEDS: THIAMINE 100 MG TAB PO SCH (08:55)
[2021-03-26] MEDS: MULTIVITAMIN 1 TAB PO SCH (08:56)
[2021-03-26] MEDS: chlordiazePOXIDE 25 MG CAP PO SCH ×3 (08:56→16:11)
[2021-03-26] MEDS: FOLIC ACID 1 MG TAB PO SCH (08:57)
[2021-03-26] MEDS: DEXT 5% / NACL 0.45% 1,000 ML IV SCH ×2 (09:06→18:25)
--- NOTE | 2021-03-26 09:11 | NUR ---
MEDICATIONS GIVEN PER MD ORDER. PT EDUCATED AND VERBALIZED UNDERSTANDING. ALL SAFETY MEASURES IN PLACE. PT COMPLAINS OF 6/10 PAIN. PT DISTRACTED AND GUIDED THROUGH BREATHING EXERCISES. PT STATES IT WAS INEFFECTIVE. PRN MED GIVEN PER MD ORDER
[2021-03-26 09:22] LABS: PROTHROMBIN TIME 9.4 secs (10.8-13.4)
[2021-03-26 09:32] LABS: AMYLASE 713 U/L (25-115); CHOL/HDL RATIO 5.7 (1-4.5); HDL CHOLESTEROL 39 mg/dL (40-60); LDL (CALC) 94 mg/dL (60-100); PHOSPHORUS 3.2 mg/dL (2.5-4.9); THYROID STIMULATING HORMONE 2.12 uIU/mL (0.34-3.74); TRIGLYCERIDES 448 mg/dL (30-150)
--- NOTE | 2021-03-26 09:32 | NUR ---
PATIENT HAS BEEN SCREENED AND CATEGORIZED LOW NUTRITION RISK. PATIENT WILL BE SEEN WITHIN 7 DAYS OF ADMISSION. 04/01/[address]
[2021-03-26] MEDS: PANTOPRAZOLE 40 MG INJ VIAL IVP SCH (11:27)
--- NOTE | 2021-03-26 11:57 | NUR ---
REASSESSED PT PAIN. PATIENT STATED PAIN MEDICATION NOT EFFECTIVE. REPOSITIONED AND PERFORMED BREATHING EXERCISES. OFFERED PT PRN MEDICATION, PT REFUSED PRN AVAILABLE. CALL LIGHT WITHIN REACH. ALL SAFETY MEASURES IN PLACE.
[2021-03-26 12:21] LABS: ANION GAP 22.1 (8-16); CARBON DIOXIDE 18.8 mmol/L (21-32); POTASSIUM 3.9 mmol/L (3.5-5.1)
[2021-03-26 12:22] LABS: ALBUMIN 3.8 g/dL (3.4-5.0); CREATININE 0.8 mg/dL (0.6-1.3); TOTAL BILIRUBIN 0.6 mg/dL (0.0-1.0)
--- NOTE | 2021-03-26 13:30 | NUR ---
PRN MEDICATION GIVEN FOR PAIN PER MD ORDER. PT EDUCATED AND VERBALIZED UNDERSTANDING. ALL SAFETY MEASURES IN PLACE. PT COMPLAINS OF 7/10 PAIN. PT DISTRACTED AND GUIDED THROUGH BREATHING EXERCISES. PT STATES IT WAS INEFFECTIVE.
--- NOTE | 2021-03-26 14:23 | NUR ---
DC PLANN[age] YRS OLD MALE PATIENT WAS ADMITTED FROM HOME WITH A DX OF PANCREATITIS. PATIENT HAS A HX OF SEVER ALCOHOLISM. LIPASE LEVEL 1860, 5192 ADMINISTERED IVF, IV ABX ROCEPHIN. CONSULTED WITH LICHA MONDRAGON. CM TO FOLLOW CALLED DENA SPOKE WITH YISEL SORIANO PT'S CLINICAL. Addendum: 03/27/21 at 1439 by Shaye Rivera RN DC PLANNING: LIPASE LEVEL 2521 , CONTINUE IVF AND PAIN MEDICATIONS ADVANCED DIET TO CLEAR LIQUID CONTRACTS ADVISOR FOR ALCOHOL ABUSE. DC PLAN TO GO HOME WHEN STABLE. CM TO FOLLOW Addendum: 03/27/21 at 1724 by Lilly Diego CM SHAUNA MEET WITH PATIENT AT BED SIDE TO DISCUSS REFERRALS AND RESOURCES FOR SUBSTANCE ABUSE USE. PATIENT DID NOT DENIED ISSUES WITH ALCOHOLISM HOWEVER; SEEM POORLY MOTIVATED WHEN RECEIVING RESOURCES FOR TREATMENT PROGRAMS. PATIENT HOWEVER; ACCEPTED INFORMATION AND RESOURCES PROVIDED BY SHAUNA.
--- NOTE | 2021-03-26 15:26 | NUR ---
PT RESTING. NO S/S OF DISTRESS. NO SOB. SYMMETRICAL RESPIRATIONS. CALL LIGHT WITHIN REACH. ALL SAFETY MEASURES IN PLACE.
[2021-03-26] MEDS ORDERED: FUROSEMIDE 40 MG/4 ML VIAL IVP SCH (15:55)
[2021-03-26 16:00] VITALS: BP 156/78
[2021-03-26] MEDS: SENNA 8.6 MG TAB PO SCH (16:49)
--- NOTE | 2021-03-26 17:22 | NUR ---
IV NOT FLUSHABLE. IV SITE CHANGED, R HAND 22 G. DRESSING CLEAN AND DRY. PREVIOUS CATHETER INTACT. PATIENT TOLERATED WELL. CALL LIGHT WITH IN REACH. ALL SAFETY MEASURE IN PLACE.
--- NOTE | 2021-03-26 19:25 | NUR ---
REPORT GIVEN TO NIGHT NURSE FOR CONTINUITY OF CARE. PT STABLE. NO S/S OF DISTRESS. ALL SAFETY MEASURES IN PLACE.
--- NOTE | 2021-03-26 19:26 | NUR ---
RECD. RESTING IN BED, AWAKE, A/XO4. RESPIRATION EVEN AND UNLABORED. IV OF D5 0.45% NS INFUSING, RIGHT WRIST G22. AMBULATORY TO THE BATHROOM. NPO. DENIES ABDOMINAL PAIN AT THIS TIME , WAS MEDICATED WITH DILAUDID AT 1920 BY AM NURSE. MEDICATIONS FOR THE SHIFT DISCUSSED WITH PATIENT. TEACHING ON ALCOHOL ABSTINENCE GIVEN. VERBALIZED UNDERSTANDING.
[2021-03-26 20:00] VITALS: BP 110/61
--- NOTE | 2021-03-26 20:00 | NUR ---
Patient's Plan of Care was discussed and reviewed with CHIEF DESIGN BRANCH: RUDOLPH CARRENO
--- NOTE | 2021-03-26 21:00 | NUR ---
RESTING COMFORTABLY ASLEEP IN BED, RESPIRATION EVEN AND UNLABORED.
--- NOTE | 2021-03-27 | NUR ---
STILL SLEEPING COMFORTABLY IN BED.
[2021-03-27 01:51] VITALS: BP 138/90
[2021-03-27] MEDS: MORPHINE SULFATE 2 MG/ML SYR IVP PRN ×2 (02:13→08:41)
[2021-03-27] MEDS: DEXT 5% / NACL 0.45% 1,000 ML IV SCH ×4 (02:17→23:02)
[2021-03-27 05:57] VITALS: BP 126/69
--- NOTE | 2021-03-27 06:10 | NUR ---
REQUESTED FOR PAIN MEDICATION BUT WHEN RN ENTERED THE ROOM, PATIENT IS SLEEPING COMFORTABLY. RETURN PAIN MEDICATION TO THE [facility].
--- NOTE | 2021-03-27 07:00 | NUR ---
CONDITION REMAIN STABLE. WILL ENDORSE TO AM SHIFT NURSE FOR CONTINUITY OF CARE.
[2021-03-27 07:07] LABS: HEPATITIS A ANTIBODY IGM Negative (Negative); HEPATITIS B CORE AB TOTAL Negative (Negative); HEPATITIS B SURFACE ANTIBODY Reactive (.); HEPATITIS B SURFACE ANTIGEN Negative (Negative)
[2021-03-27 07:29] LABS: BASOPHILS % (AUTO) 0.2 % (0.0-2.0); EOSINOPHILS # (AUTO) 0.1 K/uL (0-0.4); EOSINOPHILS % (AUTO) 1.3 % (0.0-4.0); HEMATOCRIT 43.7 % (36-52); HEMOGLOBIN 15.4 g/dL (12.0-18.0); LYMPHOCYTES # (AUTO) 1.8 K/uL (2.0-11.5); LYMPHOCYTES % (AUTO) 17.4 % (20.5-51.1); MEAN CORPUSCULAR HEMOGLOBIN 32 pg (27-31); MEAN CORPUSCULAR HGB CONC 35 g/dL (33-37); MEAN CORPUSCULAR VOLUME 91.3 fL (80-94); MONOCYTES # (AUTO) 0.6 K/uL (0.8-1.0); MONOCYTES % (AUTO) 5.8 % (1.7-9.3); NEUTROPHILS # (AUTO) 7.8 K/uL (1.8-7.7); NEUTROPHILS % (AUTO) 75.3 % (42.2-75.2); PLATELET COUNT (AUTO) 182 K/uL (140-450); RED BLOOD CELL COUNT(AUTO) 4.79 MIL/uL (4.20-6.10); RED CELL DISTRIBUTION WIDTH 13.3 % (11.6-13.7); WHITE BLOOD COUNT (AUTO) 10.4 K/uL (4.8-10.8)
[2021-03-27 08:00] VITALS: BP 133/84
--- NOTE | 2021-03-27 08:16 | NUR ---
RECEIVED REPORT FROM NIGHT NURSE PATIENT IS AAOX4, NPO, SKIN INTACT , IV INTACT ON RIGHT WRIST WITH D51/2 NS AT 100, SAFETY MEASURES IN PLACE AND CALL LIGHT WITHIN REACH. WILL CONTINUE TO MONITOR.
[2021-03-27] MEDS: PANTOPRAZOLE 40 MG INJ VIAL IVP SCH (08:40)
[2021-03-27] MEDS: chlordiazePOXIDE 25 MG CAP PO SCH ×3 (08:47→16:17)
[2021-03-27] MEDS: MULTIVITAMIN 1 TAB PO SCH (08:47)
[2021-03-27] MEDS: SENNA 8.6 MG TAB PO SCH ×3 (08:47→16:17)
[2021-03-27] MEDS: FOLIC ACID 1 MG TAB PO SCH (08:47)
[2021-03-27] MEDS: THIAMINE 100 MG TAB PO SCH (08:48)
--- NOTE | 2021-03-27 08:48 | NUR ---
ADMINISTERED SCHEDULED IV MEDICATIONS AND PT COMPLAINS OF PAIN 6/10 ON THE ABDOMEN. CHECK VITAL SIGNS BP 133/84 CA 94. WILL CONTINUE TO MONITOR.
[2021-03-27] MEDS ORDERED: HYDROmorphone PFS 2 MG/ML SYR IVP PRN (10:15)
[2021-03-27] MEDS ORDERED: MORPHINE SULFATE 2 MG/ML SYR IVP PRN (10:18)
[2021-03-27 11:24] LABS: ALBUMIN 3.5 g/dL (3.4-5.0); ANION GAP 13.4 (8-16); CARBON DIOXIDE 28.2 mmol/L (21-32); CREATININE 0.8 mg/dL (0.6-1.3); MAGNESIUM 2.1 mg/dL (1.8-2.4); POTASSIUM 3.6 mmol/L (3.5-5.1); TOTAL BILIRUBIN 0.8 mg/dL (0.0-1.0)
--- NOTE | 2021-03-27 13:02 | NUR ---
PT MEDICATION HELD PT IS NPO,
[2021-03-27] MEDS: HYDROmorphone PFS 2 MG/ML SYR IVP PRN ×2 (15:56→23:01)
--- NOTE | 2021-03-27 15:56 | NUR ---
PATIENT COMPLAINS OF ABDOMINAL PAIN 01/18 CHECK VITAL SIGNS BP 117/79 HI 97 PAIN MEDICATIONS GIVEN. WILL CONTINUE TO MONITOR.
[2021-03-27 16:00] VITALS: BP 117/79
--- NOTE | 2021-03-27 16:20 | NUR ---
ADMINISTERED SCHEDULED MEDICATION CHECK VITAL SIGNS BP 117/70 ID 97. PT IS RESTING.
--- NOTE | 2021-03-27 19:23 | NUR ---
ENDORSED TO NIGHT NURSE FOR CONTINUITY OF CARE. PT STABLE
[2021-03-28 00:47] VITALS: BP 119/81
--- NOTE | 2021-03-28 01:47 | NUR ---
THE PATIENT WAS ADMITTED 2 DAYS AGO FO EPIHASTRIC PAIN , LAB SHOWED HIGH LIPASE LEVEL, ABD US SHOWED HEPATOMGEALY AND PANCREATITIS . THE PATIENT IS D5 1/2 N/S. NO S/S OF DEHYDRATION . PATIENT IS ON PAIN MANAGEMENT , THE PATEINT VITALS ARE STABLE.
[2021-03-28] MEDS: DEXT 5% / NACL 0.45% 1,000 ML IV SCH ×2 (05:14→09:15)
[2021-03-28] MEDS: HYDROmorphone PFS 2 MG/ML SYR IVP PRN ×2 (05:14→14:01)
[2021-03-28 06:22] LABS: BASOPHILS % (AUTO) 0.3 % (0.0-2.0); EOSINOPHILS # (AUTO) 0.2 K/uL (0-0.4); EOSINOPHILS % (AUTO) 2.3 % (0.0-4.0); HEMATOCRIT 43.8 % (36-52); LYMPHOCYTES # (AUTO) 2.1 K/uL (2.0-11.5); LYMPHOCYTES % (AUTO) 29.6 % (20.5-51.1); MEAN CORPUSCULAR HEMOGLOBIN 32 pg (27-31); MEAN CORPUSCULAR HGB CONC 34 g/dL (33-37); MEAN CORPUSCULAR VOLUME 92.9 fL (80-94); MONOCYTES # (AUTO) 0.5 K/uL (0.8-1.0); MONOCYTES % (AUTO) 7.4 % (1.7-9.3); NEUTROPHILS # (AUTO) 4.4 K/uL (1.8-7.7); NEUTROPHILS % (AUTO) 60.4 % (42.2-75.2); PLATELET COUNT (AUTO) 201 K/uL (140-450); RED BLOOD CELL COUNT(AUTO) 4.72 MIL/uL (4.20-6.10); RED CELL DISTRIBUTION WIDTH 13.4 % (11.6-13.7); WHITE BLOOD COUNT (AUTO) 7.2 K/uL (4.8-10.8)
[2021-03-28 07:10] LABS: ALBUMIN 3.3 g/dL (3.4-5.0); ANION GAP 12.9 (8-16); CARBON DIOXIDE 26.5 mmol/L (21-32); CREATININE 0.8 mg/dL (0.6-1.3); MAGNESIUM 2.8 mg/dL (1.8-2.4); POTASSIUM 3.4 mmol/L (3.5-5.1); TOTAL BILIRUBIN 0.6 mg/dL (0.0-1.0)
--- NOTE | 2021-03-28 07:10 | NUR ---
RECEIVE REPORT FROM CYBER SECURITY SPECIALIST NURSE FOR CONTINUITY OF CARE. PATIENT SLEEPING. NO ACUTE DISTRESS NOTED. CALL LIGHT WITHIN REACH. ALL SAFETY MEASURES IN PLACE. WILL CONTINUE TO MONITOR.
[2021-03-28 08:00] VITALS: BP 102/50
[2021-03-28] MEDS: THIAMINE 100 MG TAB PO SCH (09:08)
[2021-03-28] MEDS: SENNA 8.6 MG TAB PO SCH ×2 (09:08→13:55)
[2021-03-28] MEDS: FOLIC ACID 1 MG TAB PO SCH (09:09)
[2021-03-28] MEDS: MULTIVITAMIN 1 TAB PO SCH (09:09)
[2021-03-28] MEDS: chlordiazePOXIDE 25 MG CAP PO SCH ×2 (09:09→13:56)
[2021-03-28] MEDS: PANTOPRAZOLE 40 MG INJ VIAL IVP SCH (09:10)
--- NOTE | 2021-03-28 09:10 | NUR ---
PATIENT AWAKE AND ALERT. NO ACUTE DISTRESS NOTED. SCHEDULED MEDICATION GIVEN. PATIENT DENIES PAIN AT THIS TIME. ALL SAFETY MEASURES IN PLACE. CALL LIGHT WITHIN REACH. WILL CONTINUE TO MONITOR.
[2021-03-28] MEDS ORDERED: POTA10TE30 PO (10:07)
[2021-03-28] MEDS ORDERED: IBUP-2213 PO (10:07)
--- NOTE | 2021-03-28 11:30 | NUR ---
PATIENT SLEEPING. BREATHING EVEN AND UNLABORED. NO ACUTE DISTRESS NOTED. ALL SAFETY MEASURES IN PLACE. CALL LIGHT WITHIN REACH. WILL CONTINUE TO MONITOR.
--- NOTE | 2021-03-28 13:05 | NUR ---
PATIENT SLEEPING. BREATHING EVEN AND UNLABORED. NO ACUTE DISTRESS NOTED. ALL SAFETY MEASURES IN PLACE. CALL LIGHT WITHIN REACH. WILL CONTINUE TO MONITOR.
--- NOTE | 2021-03-28 14:09 | NUR ---
PATIENT AWAKE AND ALERT. NO ACUTE DISTRESS NOTED. PATIENT COMPLAIN OF ABDOMEN PAIN. PAIN MEDICATION GIVEN. CALL LIGHT WITHIN REACH. ALL SAFETY MEASURES IN PLACE. WILL CONTINUE TO MONITOR.
[2021-03-28 16:00] VITALS: BP 132/82
--- NOTE | 2021-03-28 16:40 | NUR ---
PATIENT AWAKE AND ALERT. NO ACUTE DISTRESS NOTED. VS STABLE. DISCHARGE INFORMATION GIVEN. PATIENT SIGNED ALL DOCUMENTS. IV AND WRISTBAND REMOVED. IV INTACT. PATIENT VERBALIZE UNDERSTANDING. PATIENT TAKEN TO FRONT LOBBY. PATIENT MOM PICKED UP PATIENT.
== END 2021-03-28 16:40 | disposition home or self-care (01) | DRG 282 ==
LOC: MED 18:07 → MTU 22:33
PROVIDERS: ADMIT Family Medicine; ATTEND Family Medicine
DX: K85.90 Acute pancreatitis without necrosis or infection, unspecified (principal); K76.0 Fatty (change of) liver, not elsewhere classified; F10.20 Alcohol dependence, uncomplicated; F17.210 Nicotine dependence, cigarettes, uncomplicated; R74.01 Elevation of levels of liver transaminase levels; K21.9 Gastro-esophageal reflux disease without esophagitis; Z20.822 Contact with and (suspected) exposure to COVID-19; Z79.899 Other long term (current) drug therapy; Z84.1 Family history of disorders of kidney and ureter
CPT/HCPCS: 36415; 71045; 74150; 80053; 82150; 83036; 83690; 83735; 83880; 84100; 84439; 84443; 84484; 85025; 85610; 85730; 86704; 86706; 86708; 86709; 86803; 87081; 87340; 93005; 96361; 96374; 96375; 99285; C9113; G0482; J0696; J1170; J2270; J7060; Q0092

== ENCOUNTER 2021-08-09 00:31 | Emergency (ER) | payer MEDICAID, SELFPAY ==
[~2021-08-09] VITALS: Ht 185.4 cm; Wt 125.2 kg
[~2021-08-09 00:31] MED LIST changes: -ACET-1182 PO; -HYDR-5122 PO; +IBUP-2213 PO; +POTA10TA70 PO
[2021-08-09 00:44] VITALS: BP 144/77
[2021-08-09] MEDS ORDERED: NACL 0.9% 1,000 ML IV SCH (01:15)
[2021-08-09] MEDS ORDERED: MORPHINE SULFATE 2 MG/ML SYR IVP ONE ×2 (01:15→03:30)
[2021-08-09] MEDS ORDERED: ONDANSETRON 4 MG/2 ML VIAL IVP ONE ×2 (01:15→03:35)
--- NOTE | 2021-08-09 01:32 | NUR ---
urine collected and given to gricelda from lab.
--- NOTE | 2021-08-09 01:36 | NUR ---
pt taken in [place]
[2021-08-09 01:58] LABS: HEMATOCRIT 45.7 % (36-52); HEMOGLOBIN 16.1 g/dL (12.0-18.0); MEAN CORPUSCULAR HEMOGLOBIN 31 pg (27-31); MEAN CORPUSCULAR HGB CONC 35 g/dL (33-37); MEAN CORPUSCULAR VOLUME 89.1 fL (80-94); PLATELET COUNT (AUTO) 190 K/uL (140-450); RED BLOOD CELL COUNT(AUTO) 5.13 MIL/uL (4.20-6.10); RED CELL DISTRIBUTION WIDTH 12.8 % (11.6-13.7); WHITE BLOOD COUNT (AUTO) 8.2 K/uL (4.8-10.8)
[2021-08-09 02:07] LABS: BILIRUBIN,URINE 1+ (NEGATIVE); BLOOD, URINE NEGATIVE (NEGATIVE); COLOR,URINE YELLOW (YELLOW); LEUKOCYTE ESTERASE ,URINE NEGATIVE (NEGATIVE); NITRITE, URINE NEGATIVE (NEGATIVE); UGLUCOSE NEGATIVE (NEGATIVE)
[2021-08-09 02:13] LABS: ANION GAP 16.1 (8-16); CREATININE 0.9 mg/dL (0.6-1.3); POTASSIUM 4.1 mmol/L (3.5-5.1)
[2021-08-09 02:19] LABS: ALBUMIN 3.7 g/dL (3.4-5.0); TOTAL BILIRUBIN 0.5 mg/dL (0.0-1.0)
[2021-08-09 02:25] LABS: APPEARANCE,URINE CLOUDY (CLEAR)
[2021-08-09 02:31] LABS: EOSINOPHILS % (MANUAL) 1 % (0-4); LYMPHOCYTES % (MANUAL) 9 % (20-46); MONOCYTES % (MANUAL) 1 % (5-12)
[2021-08-09 02:38] LABS: RBC,URINE 0-5 /HPF (0-5); URINE AMORPHOUS URATE 1+ /HPF (None Seen); WBC,URINE 0-5 /HPF (0-5)
[2021-08-09] MEDS ORDERED: diphenhydrAMINE 50 MG/ML VIAL IVP ONE (03:30)
[2021-08-09] MEDS ORDERED: NACL 0.9% 1,000 ML IV ONE (03:30)
[2021-08-09 04:16] VITALS: BP 140/72
--- NOTE | 2021-08-09 04:23 | NUR ---
Patient discharged with v/s stable. ALL IV FLUIDS FINISHED . Written and verbal after care instructions given and explained. Patient verbalized understanding. Ambulatory with steady gait. All questions addressed prior to discharge. Advised to follow up with PMD.
== END 2021-08-09 04:16 | disposition home or self-care (01) ==
LOC: MED 00:31
DX: R10.13 Epigastric pain (principal); R11.0 Nausea; R50.9 Fever, unspecified; K21.9 Gastro-esophageal reflux disease without esophagitis; Z79.899 Other long term (current) drug therapy
CPT/HCPCS: 36415; 74176; 80053; 81001; 83690; 85025; 87086; 96361; 96374; 96375; 96376; 99284; J1200; J2270; J2405; J7030

== ENCOUNTER 2022-03-15 14:33 | Emergency (ER) | payer MEDICAID ==
[~2022-03-15] VITALS: Ht 185.4 cm; Wt 131.1 kg
[2022-03-15 14:41] VITALS: BP 131/79
[2022-03-15] MEDS ORDERED: NACL 0.9% 1,000 ML IV ONE (15:00)
[2022-03-15] MEDS ORDERED: ONDANSETRON 4 MG/2 ML VIAL IVP ONE (15:00)
[2022-03-15] MEDS ORDERED: KETOROLAC 15 MG/ML VIAL IVP ONE (15:00)
[2022-03-15] MEDS ORDERED: FAMOTIDINE 20 MG TAB PO ONE (15:00)
[2022-03-15 15:30] LABS: BASOPHILS % (AUTO) 0.6 % (0.0-2.0); EOSINOPHILS # (AUTO) 0.1 K/uL (0-0.4); EOSINOPHILS % (AUTO) 0.9 % (0.0-4.0); HEMATOCRIT 44.5 % (36-52); HEMOGLOBIN 15.2 g/dL (12.0-18.0); LYMPHOCYTES # (AUTO) 2.3 K/uL (2.0-11.5); LYMPHOCYTES % (AUTO) 34.4 % (20.5-51.1); MEAN CORPUSCULAR HEMOGLOBIN 31 pg (27-31); MEAN CORPUSCULAR HGB CONC 34 g/dL (33-37); MEAN CORPUSCULAR VOLUME 89.8 fL (80-94); MONOCYTES # (AUTO) 0.5 K/uL (0.8-1.0); NEUTROPHILS # (AUTO) 3.8 K/uL (1.8-7.7); NEUTROPHILS % (AUTO) 57.1 % (42.2-75.2); PLATELET COUNT (AUTO) 255 K/uL (140-450); RED BLOOD CELL COUNT(AUTO) 4.96 MIL/uL (4.20-6.10); RED CELL DISTRIBUTION WIDTH 13.5 % (11.6-13.7); WHITE BLOOD COUNT (AUTO) 6.7 K/uL (4.8-10.8)
[2022-03-15 15:45] LABS: ALBUMIN 3.8 g/dL (3.4-5.0); ANION GAP 19.6 (8-16); CARBON DIOXIDE 21.9 mmol/L (21-32); CREATININE 0.8 mg/dL (0.6-1.3); POTASSIUM 3.5 mmol/L (3.5-5.1); TOTAL BILIRUBIN 0.5 mg/dL (0.0-1.0)
[2022-03-15] MEDS ORDERED: ONDA-188 PO (16:18)
[2022-03-15] MEDS ORDERED: FAMO-90 PO (16:18)
[2022-03-15 16:46] VITALS: BP 136/81
== END 2022-03-15 16:46 | disposition home or self-care (01) ==
LOC: MED 14:33
DX: F10.129 Alcohol abuse with intoxication, unspecified (principal); Z79.899 Other long term (current) drug therapy; Z79.1 Long term (current) use of non-steroidal anti-inflammatories (NSAID); Y90.9 Presence of alcohol in blood, level not specified
CPT/HCPCS: 36415; 80053; 83690; 85025; 96361; 96374; 99283; J2405; J7030; J1885

== ENCOUNTER 2023-03-07 16:53 | Emergency (ER) | payer MEDICAID ==
[~2023-03-07] VITALS: Ht 185.4 cm; Wt 136.1 kg
[~2023-03-07 16:53] MED LIST changes: +FAMO-90 PO; +ONDA-188 PO
[2023-03-07 17:04] VITALS: BP 147/89; PULSE 76; RESP 18; TEMP 97.9; O2SAT 98
[2023-03-07 17:40] VITALS: O2SAT 98
[2023-03-07] MEDS ORDERED: IBUP-2213 PO (18:40)
[2023-03-07 18:48] VITALS: BP 134/86; PULSE 76; RESP 18; TEMP 97.9; O2SAT 98
== END 2023-03-07 18:00 | disposition home or self-care (01) ==
LOC: MED 16:53
DX: R68.84 Jaw pain (principal); Z79.899 Other long term (current) drug therapy; Z79.1 Long term (current) use of non-steroidal anti-inflammatories (NSAID)
CPT/HCPCS: 70100; 99283; Q0092